=== PATIENT | female | born 1960 ===

== ENCOUNTER 2019-05-23 16:25 | Emergency (ER) | payer OTHER ==
[~2019-05-23] VITALS: Ht 154.9 cm; Wt 51.9 kg
[2019-05-23 16:55] VITALS: BP 145/90
--- NOTE | 2019-05-23 19:24 | NUR ---
NO ANSWER WHEN PT CALLED FOR REPEAT VITALS @ 1924.
--- NOTE | 2019-05-23 19:53 | NUR ---
NO ANSWER WHEN PT CALLED FOR REPEAT VITALS @ 1952.
--- NOTE | 2019-05-23 20:17 | NUR ---
NO ANSWER WHEN PT CALLED FOR REPEAT VITALS @ 2017.
== END 2019-05-23 20:36 | disposition left against medical advice (07) ==
LOC: ED 16:45
DX: I10 Essential (primary) hypertension (principal); Z53.21 Procedure and treatment not carried out due to patient leaving prior to being seen by health care provider
CPT/HCPCS: 93005